=== PATIENT | male | born 1965 | race Caucasian/White ===

== ENCOUNTER 2019-07-12 07:25 | Day surgery (SDC) | payer OTHER ==
[2019-07-08 13:16] VITALS: BMI 28.5
[2019-07-12] MEDS ORDERED: LIDOCAINE 1% 20 ML VIAL (10MG/ML) FOR IV START INTRADERMA PRN (07:36)
[2019-07-12 07:38] VITALS: RESP 16; TEMP 97.6
[2019-07-12] MEDS: LACTATED RINGERS 1,000 ML IV SCH ×2 (07:46→08:09)
[2019-07-12] MEDS ORDERED: PROPOFOL 10 MG/ML 20 ML VIAL IV ONE (08:13)
--- NOTE | 2019-07-12 08:46 | P.PCN ---
Date of Procedure: 07/12/19 Description of Procedure: BRIEF HISTORY: Patient is a 53-year-old pleasant male scheduled for an elective colonoscopy as a part of screening for malignant neoplasm colon. The patient does have a remote history of colonoscopy approximately 20 years ago which she reports was normal. He denies any change in bowel habits, abdominal pain or blood per rectum. No family history of colon cancer. PROCEDURE PERFORMED: Colonoscopy with polypectomy. PREOPERATIVE DIAGNOSIS: Screening for malignant neoplasm of the colon, last colonoscopy normal per his recollection or around 20 years ago. ESTIMATED BLOOD LOSS: Minimal. IV sedation per Anesthesia. PROCEDURE: After informed consent was obtained, the patient, was brought into the endoscopy unit. IV sedation was administered by Anesthesia under continuous monitoring. Digital rectal examination was normal. Initially the Olympus CF-190 flexible video colonoscope was then inserted in the rectum, gradually advanced into the cecum without any difficulty. Careful examination was performed as the scope was gradually being withdrawn. Ileocecal valve and the appendiceal orifice were visualized and appeared normal. Prep was excellent. Mucosa of the cecum, ascending colon, transverse colon, descending colon, sigmoid colon, and rectum appeared normal. 3 diminutive polyps removed with cold forcep polypectomy with 2 sessile polyps removed in the sigmoid colon measuring 2 mm and 3 mm and 1 in the descending colon measuring 2 mm. Multiple small and large diverticula in the sigmoid colon. Retroflexion was performed in the rectum and no lesions were seen. The patient tolerated the procedure well. IMPRESSION: 3 diminutive polyps removed from the sigmoid and descending colon with cold forcep polypectomy. Sigmoid diverticulosis. RECOMMENDATIONS: Findings of this examination were discussed with the patient and his girlfriend. Okay to resume high-fiber diet. Okay to resume medications. Anticipate repeat colonoscopy in 5 years pending pathology from polypectomies.
[2019-07-12 09:14] VITALS: BP 124/81; PULSE 60
== END 2019-07-12 09:33 | disposition home or self-care (01) ==
LOC: ORWHC2ENDO 07:25
PROVIDERS: ATTEND Internal Medicine
DX: Z12.11 Encounter for screening for malignant neoplasm of colon (principal); D12.5 Benign neoplasm of sigmoid colon; K63.5 Polyp of colon; K92.2 Gastrointestinal hemorrhage, unspecified; Z86.14 Personal history of Methicillin resistant Staphylococcus aureus infection; Z79.82 Long term (current) use of aspirin; Z88.5 Allergy status to narcotic agent
CPT/HCPCS: 88305; 45380; J2704

== ENCOUNTER → 2023-03-27 | Outpatient (CLI) | payer OTHER ==
--- NOTE | 2023-03-27 09:57 | XR ---
EXAMINATION TYPE: XR cervical spine comp DATE OF EXAM: 03/27/2023 COMPARISON: NONE HISTORY: Pain TECHNIQUE: Four views are submitted. FINDINGS: The odontoid is intact. There are no compression deformities. The prevertebral soft tissue structur es are within normal limits. Severe degenerative disc disease C6-C7 multilevel severe facet arthropa thy and suspected foraminal encroachment. Lung apices clear. IMPRESSION: 1. Severe degenerative disc disease C6-C7 with multilevel severe facet arthropathy and suspected fora agueda protrusion. Recommend MRI.
--- NOTE | 2023-03-27 09:59 | XR ---
EXAM TYPE: LUMBAR SPINE X RAY SERIES COMPARISON: NONE HISTORY: Pain TECHNIQUE: 4 views are submitted. FINDINGS: Alignment is anatomic. The pedicles are intact. The transverse processes are intact. There is batsheva re degenerative disc disease L5-S1 with facet arthropathy and a minimal anterolisthesis mild to moder ate degenerative disc disease at remaining levels. Spina bifida occulta lumbosacral junction. There i s no spondylolysis or spondylolisthesis. IMPRESSION: 1. Severe degenerative disc disease L5-S1 with multilevel facet arthropathy and suspected foraminal p rotrusion most marked at L4-5 and L5-S1. Grade 1 anterolisthesis of L5 on S1. Findings suggestive of bilateral spondylolysis. 2. Multilevel mild to moderate remaining degenerative disc disease and
--- NOTE | 2023-03-27 10:00 | XR ---
EXAMINATION TYPE: XR thoracic spine 2V DATE OF EXAM: 03/27/2023 COMPARISON: NONE HISTORY: Pain TECHNIQUE: 3 views submitted FINDINGS: Alignment is anatomic. There is no compression deformities. Multilevel hypertrophic and degenerative changes spine. Slight scoliotic curvature. IMPRESSION: 1. Multilevel degenerative disc disease most pronounced involving the lower thoracic spine..
== END | disposition home or self-care (01) ==
LOC: RADXRMAIN 09:17
PROVIDERS: ATTEND Family Medicine
DX: M51.34 Other intervertebral disc degeneration, thoracic region (principal); M51.37 Other intervertebral disc degeneration, lumbosacral region; M47.817 Spondylosis without myelopathy or radiculopathy, lumbosacral region; M43.17 Spondylolisthesis, lumbosacral region; M50.323 Other cervical disc degeneration at C6-C7 level; G89.29 Other chronic pain; M47.812 Spondylosis without myelopathy or radiculopathy, cervical region
CPT/HCPCS: 72050; 72070; 72110

== ENCOUNTER → 2024-03-03 | Outpatient (CLI) | payer OTHER ==
--- NOTE | 2024-03-03 11:36 | CT ---
EXAMINATION TYPE: CT abdomen pelvis w con CT DLP: 1617 mGycm, Automated exposure control for dose reduction was used. DATE OF EXAM: 03/03/2024 10:39 AM COMPARISON: CT abdomen pelvis most recent from CLINICAL INDICATION:Male, 58 years old with history of R14.0 ABDOMINAL DISTENSION (GASEOUS); changes in meds causing gas and bloating x2-3 months TECHNIQUE: Axial CT abdomen pelvis w con;Sagittal and coronal reformats were created on a separate w orkstation. Contrast used:100 mL of Isovue 300 with IV Contrast, (none if empty) Oral contrast used: with Oral Contrast (none if empty) FINDINGS: LOWER CHEST: Unremarkable ABDOMEN LIVER: A 2.2 cm hemangioma is seen in the left lobe of the liver. Liver is otherwise unremarkable. GALLBLADDER AND BILE DUCTS: Unremarkable. PANCREAS: Unremarkable. SPLEEN: Unremarkable. ADRENAL GLANDS: Unremarkable. KIDNEYS AND URETERS: No evidence of hydronephrosis or renal calculus. The ureters are unremarkable. Tiny subcentimeter cyst in the lower pole of the right kidney has simple appearance and no follow-up is therefore necessary. PELVIS BLADDER: Unremarkable REPRODUCTIVE: Unremarkable. ABDOMEN & PELVIS STOMACH AND BOWEL: Stomach and duodenum are unremarkable. No evidence of bowel obstruction. PERITONEUM/RETROPERITONEUM: No evidence of pneumoperitoneum or free fluid. VASCULATURE: No evidence of aortic aneurysm. MUSCULOSKELETAL: No acute osseous abnormalities LYMPH NODES: No gross evidence for lymphadenopathy. SOFT TISSUE/ABDOMINAL WALL: Unremarkable IMPRESSION: 1. No CT evidence of acute abdominal process. Unremarkable exam.
== END | disposition home or self-care (01) ==
LOC: RADCTMAIN 08:02
PROVIDERS: ATTEND Family Medicine
DX: R14.0 Abdominal distension (gaseous) (principal)
CPT/HCPCS: 74177; Q9967

== ENCOUNTER → 2025-04-28 | Outpatient (CLI) | payer OTHER ==
--- NOTE | 2025-04-28 09:34 | US ---
EXAMINATION TYPE: US abdomen complete DATE OF EXAM: 04/28/2025 COMPARISON: CT abdomen and pelvis 03/03/2024 CLINICAL INDICATION: Male, 59 years old with history of R11.0 NAUSEA, R14.0; TECHNIQUE: Grayscale and color Doppler imaging of the abdomen was performed. FINDINGS: EXAM MEASUREMENTS: Liver Length: 17.8cm Gallbladder Wall: 0.2cm CBD: 0.5cm color Doppler imaging was utilized to isolate the common bile duct for measurement. Spleen: 11.8cm Right Kidney: 12.1x6.1x6.8cm Left Kidney: 10.8x6.6x5.7cm SOUND EFFECTS TECHNICIAN NOTES: limited study due to overlying bowel Pancreas: Tail obscured by overlying bowel gas Liver: Increased attenuation, decreased visualization of vessels suggestive of fatty infiltrate, dif ficult to penetrate, Enlarged Gallbladder: No stones seen Evidence for sonographic Medina's sign: No CBD: wnl Spleen: wnl Right Kidney: wnl, No hydronephrosis, calculi or masses seen Left Kidney: wnl, No hydronephrosis, calculi or masses seen Upper IVC: partially visualized Abd Aorta: prox: limited, mid/distally: wnl as best visualized The visualized portions of pancreas unremarkable. Liver demonstrates diffusely increased echogenicity and difficult to penetrate. Noncirrhotic morphology. The liver is enlarged. There is a heterogenous mass within the left hepatic lobe measuring 2.7 x 2.5 x 2.5 cm with some peripheral color flow identi fied. This corresponds to prior CT hemangioma. Gallbladder is demonstrates no wall thickening, stones or surrounding fluid. Negative sonographic Medina's sign. Common bile duct is within normal limits. Both kidneys demonstrate no hydronephrosis, shadowing calculus or solid mass. Spleen is unremarkable. The visualized portions of the upper IVC and abdominal aorta are within normal limits. IMPRESSION: 1. No ultrasound evidence for acute process. 2. Left hepatic lobe 2.7 cm lesion as seen on prior CT. Consistent with a known hepatic hemangioma. 3. Hepatomegaly with hepatic steatosis. [facility], , 04/28/2025 9:32 AM
== END | disposition home or self-care (01) ==
LOC: RADUSWWP 08:39
PROVIDERS: ATTEND Family Medicine
DX: K76.0 Fatty (change of) liver, not elsewhere classified (principal); R16.0 Hepatomegaly, not elsewhere classified; R14.0 Abdominal distension (gaseous)
CPT/HCPCS: 76700

== ENCOUNTER → 2025-05-02 | Outpatient (CLI) | payer OTHER ==
--- NOTE | 2025-05-02 16:26 | NM ---
EXAMINATION TYPE: NM hepatobiliary w EF DATE OF EXAM: 05/02/2025 4:16 PM COMPARISON: Ultrasound most recent 04/28/2025 CT abdomen pelvis most recent from 03/03/2024. CLINICAL INDICATION:Male, 59 years old with history of R11.0 NAUSEA R14.0 ABDOMINAL DISTENSION (GASE OUS); TECHNIQUE: The patient was given 5.23 mCi of Technetium 99m-Mebrofenin as a radiotracer and multiple scintigraphic images were obtained of the abdomen. Gallbladder function was also assessed after the administration of ensure drink and additional scintigraphic images were obtained of the abdomen. A re gion of interest was drawn over the gallbladder and a timing activity curve was generated. The gallbl adder ejection fraction was calculated. FINDINGS: Normal uptake of radiotracer was identified within the liver with excretion into the hepatic and comm on biliary ducts within 8 min. There was normal progressive washout of the liver over the course of t he study. Radiotracer uptake within the gallbladder at 16 minutes as well as small bowel activity was identified at 14 minutes. Maximum calculated gallbladder ejection fraction is: 74% at 30 minutes (Normal gallbladder ejection fraction is > 35%) IMPRESSION: 1. Normal hepatobiliary scan. 2. Normal ejection fraction. [facility], , 05/02/2025 4:23 PM
== END | disposition home or self-care (01) ==
LOC: RADNMMAIN 12:25
PROVIDERS: ATTEND Family Medicine
DX: R11.0 Nausea (principal); R14.0 Abdominal distension (gaseous)
CPT/HCPCS: 78226; A9537